=== PATIENT | female | born 1990 | race Caucasian/White ===

== ENCOUNTER 2024-03-22 11:11 | Emergency (ER) | payer OTHER, SELFPAY ==
[2024-03-22 11:22] VITALS: BP 163/99
[2024-03-22 12:02] LABS: ALT (SGPT) 56 U/L (0-35); AST (SGOT) 63 U/L (14-36); Albumin 4.7 g/dl (3.5-5.0); Alkaline Phosphatase 71 U/L (38-126); Blood Urea Nitrogen 12 mg/dl (7-17); Carbon Dioxide 27 mmol/L (22-30); Chloride 103 mmol/L (98-107); Glucose 115 mg/dl (70-99); Potassium 4.2 mmol/L (3.5-5.1); Sodium 137 mmol/L (135-145); Total Bilirubin 0.4 mg/dl (0.2-1.3); Total Protein 7.3 g/dl (6.3-8.2); eGFR > 60.00
[2024-03-22 12:04] LABS: HCG, Serum Qualitative Screen Negative
[2024-03-22 12:08] VITALS: BMI 19.1
[2024-03-22 12:53] LABS: Hematocrit 38.8 % (37.0-47.0); Hemoglobin 13.4 g/dL (12.0-16.0); Mean Corp Hgb Conc. 34.5 g/dL (33.0-37.0); Mean Corpuscular Hgb 29.3 pg (27.0-31.0); Mean Corpuscular Volume 84.7 fL (81.0-99.0); Red Blood Cell Count 4.58 10^6/uL (4.20-5.40); Red Cell Dist. Width 12.2 % (11.5-14.5); White Blood Cell Count 2.8 10^3/uL (4.8-10.8)
--- NOTE | 2024-03-22 13:01 | ED.GENMED ---
History of Present Illness
General
Chief Complaint: Abnormal Lab Value
Source: patient
Exam Limitations: none
Time Seen by Provider: 03/22/24 12:17
Nursing documentation reviewed up to this point in time: agreed with
History of Present Illness
History of Present Illness:
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 The area started to get red 10 days ago and she was put on Bactrim DS BID and on 9th day, yesterday, developed generalized body rash. [facility] to
[facility] and found to have rash Leukopenia and low platelets so sent here for evaluation. Denies f/c/n/v/d/c. Denies cp or sob. Denies swelling of tongue/throat.
Review of Systems
Review of Systems
Allergies reviewed?: Yes
All Other Systems: ROS reviewed and negative except as documented in HPI and ROS
Constitutional: Denies fever, fatigue or chills
EENT: Denies sore throat
Respiratory: Denies no symptoms
Cardiac: Denies chest pain
ABD/GI: Denies abdominal pain, nausea, vomiting or diarrhea
Musculoskeletal: Reports no symptoms
Skin: Reports rash and other (well healing melanoma resection site anterior left thigh)
Neurological: Reports no symptoms
Phy Exam
Physical Exam
Physical Exam:
GENERAL: No acute distress. A&Ox3.
CONSTITUTIONAL: Afebrile.
EYES: PERRL, conjunctivae normal
ENMT: moist mucus membranes, Pharynx nl, no oral lesions
RESPIRATORY: Regular respirations, nonlabored, lungs clear.
CARDIOVASCULAR: Regular rate and rhythm, no murmurs, no rubs.
GI: Soft, nontender, normal BS
MUSCULOSKELETAL: Moves with ease. Well perfused.
SKIN: Warm, dry, pink. Generalized rash light pink (upper back upper legs, abdomen)
PSYCH: Normal mood and affect. Well kept, interactive and appropriate
NEUROLOGIC: Awake, alert and oriented. No focal neurological deficits
Course
Orders/Labs/Results
Orders:
Orders
03/22/24 11:29
Test Result ONCE
03/22/24 11:32
Complete Blood Count/With Diff Urgent
Comprehensive Metabolic Panel Urgent
HCG, Serum Qualitative Screen Urgent
Abnormal Lab Results
03/22/24
11:32
WBC 2.8 L 10^3/uL
(4.8-10.8)
Plt Count 71 L 10^3/uL
(130-400)
MPV 13.0 H fL
(7.4-10.4)
Absolute Neuts (auto) 0.9 L* 10^3/uL
(1.4-6.5)
Neutrophils % 33.9 L %
(42.2-75.2)
Monocytes % 11.6 H %
(1.7-9.3)
Glucose 115 H mg/dl
(70-99)
AST 63 H U/L
(14-36)
ALT 56 H U/L
(0-35)
03/22/24 11:32
03/22/24 11:32
Vital Signs
Initial and Last Documented VS:
Initial Vital Signs
Temp Pulse Resp BP Pulse Ox
98.9 F 106 18 163/99 100
03/22/24 11:22 03/22/24 11:22 03/22/24 11:22 03/22/24 11:22 03/22/24 11:22
Last Documented Vital Signs
Temp Pulse Resp BP Pulse Ox
98.9 F 91 18 118/77 100
03/22/24 11:22 03/22/24 13:33 03/22/24 13:33 03/22/24 13:33 03/22/24 13:33
MDM/Problems Addressed
Differential Diagnosis Includes:
Side effect of Bactrim, drug allergy, DRESS, SJS/TEN
Drug induced thrombocytopenia (DIPT)
MDM/Problems Addressed:
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 The area started to get red 10 days ago and she was put on Bactrim DS BID and on 9th day, yesterday, developed generalized body rash. Went to
today and found to have rash Leukopenia and low platelets so sent here for evaluation. Denies f/c/n/v/d/c. Denies cp or sob. Denies swelling of tongue/throat.
Afebrile, NAD
1:10 PM:
CBC: WBC 2.8 platelet count is pending
CMP: No clinically significant abnormality
hCG negative
Likelihood of DIPT: declining platelet count 9 days after starting Bactrim, sulfonamides known to cause it, Pt has no other risk/cause for thrombocytopenia
Healthy female, no sign of bleeding
history and exam could possibly indicate sulfonamide/drug induced thrombocytopenia/neutropenia
CBC: Platelets 71 (130-400 nl range)
Case discussed with Dr. Reba Burris, informed of hx of melanoma, he agrees most likely drug induced. Recommends have CBC rechecked in a week and if no worse or if improving, again in 3 weeks.
Pt and comfortable with this plan
Reviewed discharge instructions, all questions answered
*Critical Care Note
Total Time (30-74mins, 75-104mins- exclusive of procedures): Not Applicable
ED Attending Note
-
Portions of this chart may have been created with voice recognition software.� Occasional wrong word or��sound alike� substitutions may have occurred due to the inherent limitations of voice recognition software.
Discharge Plan
Departure
Patient Disposition: Home (Routine Discharge)
Date of Disposition: 03/22/24
Time of Disposition: 14:10
Patient with high blood pressure during this ER visit?: No
Condition: Good
Discharge Problem:
Thrombocytopenia due to drugs
Instructions: Managing increased bleeding risk
Referrals:
Surendra Hauser, DO [Family Provider] - Follow up in 5-7 days
Activity Restrictions/Additional Instructions:
As we discussed, your low platelets is most likely from the Bactrim.
Do not take Bactrim again.
Call your PCP tomorrow and get an order for repeat CBC in 1 week, and in 3 weeks to monitor the platelet levels which should be improved
Interventions
Interventions:
*Risk Screen - Suicide Last Done: 03/22/24 11:22
*General Assessment Last Done: 03/22/24 11:22
*Neglect/Abuse Screening Last Done: 03/22/24 11:22
ED- Fall Risk Assessment Last Done: 03/22/24 12:21
*ED COVID-19 Vaccine History Last Done: 03/22/24 12:15
*Nursing Disposition Last Done: 03/22/24 14:24
Discharge Date and Time
Discharge Date/Time: 03/22/24 14:25
Print Language: [place]
[2024-03-22 13:33] VITALS: BP 118/77
[2024-03-22 13:37] LABS: Platelet Count 71 10^3/uL (130-400)
[2024-03-22 13:38] LABS: Nucleated Red Blood Cells % 0 %
[2024-03-22 13:59] LABS: % Basophils 0.7 % (0-2); % Eosinophils 5.1 % (0-6); % Lymphocytes 48.7 % (20.5-51.1); % Monocytes 11.6 % (1.7-9.3); % Neutrophils 33.9 % (42.2-75.2); Absolute Eosinophils 0.1 10^3/uL (0-0.7); Absolute Lymphocytes 1.3 10^3/uL (1.2-3.4); Absolute Monocytes 0.3 10^3/uL (0.1-0.6); Absolute Neutrophils 0.9 10^3/uL (1.4-6.5)
== END 2024-03-22 14:25 | disposition home or self-care (01) ==
LOC: EMR 11:11
PROVIDERS: Emergency Medicine; EMERGENCY PHYSICIAN Emergency Medicine; FAMILY PHYSICIAN Family Medicine
DX: D69.59 Other secondary thrombocytopenia (principal)
CPT/HCPCS: 99283; 80053; 84703; 85025

== ENCOUNTER 2024-06-29 20:17 | Emergency (ER) | payer OTHER, SELFPAY ==
[2024-06-29 20:18] VITALS: BP 140/85
[2024-06-29 20:42] VITALS: BMI 20.3
[2024-06-29 20:56] LABS: % Basophils 0.1 % (0-2); % Immature Granulocytes 0.5 % (0-0.5); % Lymphocytes 10.7 % (20.5-51.1); % Monocytes 1.6 % (1.7-9.3); % Neutrophils 87.1 % (42.2-75.2); Absolute Immature Granulocytes 0.1 10^3/uL (0-0.05); Absolute Lymphocytes 1.2 10^3/uL (1.2-3.4); Absolute Monocytes 0.2 10^3/uL (0.1-0.6); Absolute Neutrophils 9.6 10^3/uL (1.4-6.5); Hematocrit 37.8 % (37.0-47.0); Hemoglobin 12.7 g/dL (12.0-16.0); Mean Corp Hgb Conc. 33.6 g/dL (33.0-37.0); Mean Corpuscular Hgb 29.7 pg (27.0-31.0); Mean Corpuscular Volume 88.5 fL (81.0-99.0); Mean Platelet Volume 10.2 fL (7.4-10.4); Nucleated Red Blood Cells % 0 %; Platelet Count 272 10^3/uL (130-400); Red Blood Cell Count 4.27 10^6/uL (4.20-5.40); Red Cell Dist. Width 12.7 % (11.5-14.5)
[2024-06-29 20:58] LABS: Urine Albumin Negative (Neg - Trace); Urine Bilirubin Negative (Negative); Urine Character Clear (Clear); Urine Color Straw; Urine Glucose Negative (Negative); Urine Ketone Negative (Negative); Urine Leukocyte Negative (Negative); Urine Nitrite Negative (Negative); Urine Occult Blood Negative (Negative); Urine Urobilinogen Negative (Neg - 1+)
[2024-06-29 21:08] LABS: HCG, Serum Qualitative Screen Negative
[2024-06-29 21:12] LABS: ALT (SGPT) 15 U/L (0-35); AST (SGOT) 18 U/L (14-36); Albumin 4.8 g/dl (3.5-5.0); Alkaline Phosphatase 49 U/L (38-126); Blood Urea Nitrogen 14 mg/dl (7-17); Calcium 9.5 mg/dl (8.4-10.2); Carbon Dioxide 24 mmol/L (22-30); Chloride 100 mmol/L (98-107); Estimated Creatinine Clearance 91 ml/min; Glucose 124 mg/dl (70-99); Potassium 4.2 mmol/L (3.5-5.1); Sodium 138 mmol/L (135-145); Total Bilirubin 0.5 mg/dl (0.2-1.3); Total Protein 7.7 g/dl (6.3-8.2); eGFR > 60.00
[2024-06-29 21:14] LABS: Lipase 128 U/L (23-300)
--- NOTE | 2024-06-29 21:15 | ED.GENMED ---
History of Present Illness
General
Chief Complaint: Abdominal Pain
Source: patient
Exam Limitations: none
Time Seen by Provider: 06/29/24 20:37
History of Present Illness
History of Present Illness:
This is a 34 year old female that comes in with c/o upper abd pain. States that this started on Saturday or Saturday last week. States that it is under her ribs and above the naval. States that this gets worse with eating or sitting. States that she
feels bloated and is belching. States that she is taking Prednisone 20mg daily through July. States that occasionally she feels a little lightheaded. Denies any fever, chills, chest pain, SOB, nausea, vomiting, diarrhea, headache, dizziness,
urinary burning.
Past History
Past History
ED Past Medical History: Cancer (Melanoma); Negative Asthma, HTN, Hypercholesterolemia or NIDDM
ED Past Surgical History: None
Social History
Tobacco: Non-smoker
Alcohol: Occasional
Personal:
Living: with family
Review of Systems
Review of Systems
All Other Systems: ROS reviewed and negative except as documented in HPI and ROS
Constitutional: Reports no symptoms; Denies fever or chills
EENT: Reports no symptoms
Respiratory: Reports no symptoms; Denies cough or trouble breathing
Cardiac: Reports no symptoms; Denies chest pain
ABD/GI: Reports abdominal pain; Denies nausea, vomiting, diarrhea or constipated
: Reports no symptoms; Denies dysuria, frequency or urgency
Musculoskeletal: Reports no symptoms
Skin: Reports no symptoms
Neurological: Reports other (Occasionally lightheaded); Denies dizzy or headache
Psychiatric: Reports no symptoms
Phy Exam
General Physical Exam
General Presentation: well appearing and no apparent distress
General age: appears stated age
General Skin: warm and dry
General Habitus: normal
General Mental: alert
General Hydration: appears well hydrated
ENT Exam
ENT Exam: TM's normal, pharynx normal and neck supple
Eye Exam
Eye Exam: EOMI
Cardiovascular Exam
Cardiovascular Exam: regular rate/rhythm, no edema, no murmur and normal peripheral pulses
Pulmonary Exam
Pulmonary Exam: lungs clear, no respiratory distress, no rales, chest non tender, no crackles, no rhonchi, no wheezing and no cough
Gastrointestinal Exam
Gastrointestinal Exam: normal bowel sounds, soft, no organomegaly, no pulsatile mass, non distended and tender (Epigastric area with palpation)
Musculoskeletal Exam
Musculoskeletal Exam: full ROM and no edema
Skin Exam
Skin Exam: normal color, warm/dry, no rash and no petechia
Psychiatric Exam
Psychiatric Exam: normal mood/affect
Course
Orders/Labs/Results
Orders:
Orders
06/29/24 20:41
Test Result ONCE
06/29/24 20:49
Complete Blood Count/With Diff Urgent
Comprehensive Metabolic Panel Urgent
HCG, Serum Qualitative Screen Urgent
Comment: Notify provider if positive test present
Lipase Urgent
Urinalysis Reflex To Culture Urgent
Date Specimen was Collected: 06/29/24
Time Specimen was Collected: 20:43
06/29/24 21:15
Pantoprazole [Protonix IV] 40 mg IV NOW STA
Sucralfate Suspension [Carafate Suspension] 1 gm PO NOW STA
US Abdomen Complete/Upper Urgent
Comment:
Reason For Exam: Upper abd pain. Feels pulsation
Abnormal Lab Results
06/29/24
20:49
WBC 11.0 H 10^3/uL
(4.8-10.8)
Abs Immat Gran (auto) 0.1 H 10^3/uL
(0-0.05)
Absolute Neuts (auto) 9.6 H 10^3/uL
(1.4-6.5)
Neutrophils % 87.1 H %
(42.2-75.2)
Lymphocytes % 10.7 L %
(20.5-51.1)
Monocytes % 1.6 L %
(1.7-9.3)
Glucose 124 H mg/dl
(70-99)
06/29/24 20:49
06/29/24 20:49
WBC slightly elevated. glucose nonfasting (also on Prednisone), Lipase normal at 128, HCG negative. Urine negative for infection.
Vital Signs
Initial and Last Documented VS:
Initial Vital Signs
Temp Pulse Resp BP Pulse Ox
98.0 F 87 18 140/85 99
06/29/24 20:18 06/29/24 20:18 06/29/24 20:18 06/29/24 20:18 06/29/24 20:18
Last Documented Vital Signs
Temp Pulse Resp BP Pulse Ox
98.0 F 73 17 101/65 98
06/29/24 20:18 06/29/24 21:30 06/29/24 21:30 06/29/24 21:30 06/29/24 21:30
MDM/Problems Addressed
Differential Diagnosis Includes:
Gastritis, Ulcers, Gallbladder disease.
MDM/Problems Addressed:
This is a 34 year old female that comes in with c/o upper abd pain. States that she is also taking Prednisone 20mg daily for IVF.
Will check labs, Medicated with Protonix and Carafate and get US.
Back into see patient. States that she feels that the medication did help. Will place patient on Carafate for 10 days and Protonix for 30 days. Will discharge home.
Chronic conditions affecting care:
NA
Acute Exacerbation and/or Progression of Chronic Illness:
NA
*Radiology
Radiology exam reviewed: radiology read reviewed (US-NO sonographic evidence for cholelithiasis, acute cholecystitis or biliary dilation. )
*Pulse Oximetry
Patient hypoxic: no
*EKG
Interpreted by ED Provider?: NA
Rate: EKG- N/A
*Accountant Tax Interpretation
Rate: Accountant Tax- N/A
*Critical Care Note
Total Time (30-74mins, 75-104mins- exclusive of procedures): Not Applicable
ED Attending Note
-
Portions of this chart may have been created with voice recognition software.� Occasional wrong word or��sound alike� substitutions may have occurred due to the inherent limitations of voice recognition software.
Discharge Plan
Departure
Patient Disposition: Home (Routine Discharge)
Date of Disposition: 06/29/24
Time of Disposition: 23:23
Patient with high blood pressure during this ER visit?: No
Condition: Good
Covid-19: Not Applicable
Discharge Problem:
Gastritis
Instructions: Gastritis (DC)
Prescriptions:
New
pantoprazole [Protonix] 40 mg tablet,delayed release (DR/EC)
40 mg PO DAILY Qty: 30 0RF
sucralfate [Carafate] 1 gram tablet
1 g PO ACHS Qty: 40 0RF
Rx Instructions:
Dissolve in 2tsp of water and Drink. 30min-1 hour before meals and HS.
Referrals:
Surendra Hauser DO [Family Provider] - Call in 1-3 days for appt
Activity Restrictions/Additional Instructions:
As discussed, your blood work shows very slight elevation of the white blood cell count. This is most likely due to the steroid that you are taking. Your Ultrasound as normal. This is most likely a Gastritis due to the steroid. You have had 2
prescriptions sent to the Pharmacy. The first is for Carafate which you will take 30 min to 1 hour before each meal and again at Bedtime. The second is for Protonix which is once daily. Follow up with the family doctor for further evaluation. IF YOU
HAVE INCREASED OR CHANGING PAIN, OR YOU HAVE ANY OTHER CONCERNS PLEASE RETURN TO THE EMERGENCY ROOM.
Interventions
Interventions:
*Risk Screen - Suicide Last Done: 06/29/24 20:18
*General Assessment Last Done: 06/29/24 20:18
*Neglect/Abuse Screening Last Done: 06/29/24 20:18
ED- Fall Risk Assessment Last Done: 06/29/24 20:18
*ED COVID-19 Vaccine History Last Done: 06/29/24 20:18
[id number] Assessment Last Done: 06/29/24 20:49
Discharge Date and Time
Print Language: AMERICAN
[2024-06-29 21:30] VITALS: BP 101/65
[2024-06-29] MEDS: CARAFATE SUSPENSION 1 GM PO (21:32)
[2024-06-29] MEDS: PROTONIX IV 40 MG IV (21:32)
[2024-06-29 23:22] VITALS: BP 109/71
== END 2024-06-29 23:33 | disposition home or self-care (01) ==
LOC: EMR 20:17
PROVIDERS: Emergency Medicine; EMERGENCY PHYSICIAN Emergency Medicine; FAMILY PHYSICIAN Family Medicine
DX: K29.70 Gastritis, unspecified, without bleeding (principal); Z85.820 Personal history of malignant melanoma of skin
CPT/HCPCS: 99284; 76700; 80053; 81003; 83690; 84703; 85025

== ENCOUNTER → 2024-09-01 10:46 | Outpatient (REF) | payer OTHER, SELFPAY | LOC: RAD 10:46 | PROVIDERS: ATTENDING PHYSICIAN Nurse Practitioner Family; FAMILY PHYSICIAN Family Medicine | DX: O26.859 Spotting complicating pregnancy, unspecified trimester (principal) | CPT/HCPCS: 76801 ==

== ENCOUNTER → 2025-03-10 09:45 | Outpatient (REF) | payer OTHER, SELFPAY | LOC: PNTC 09:45 | PROVIDERS: ATTENDING PHYSICIAN Student in an Organized Health Care Education/Training Program | DX: Z31.83 Encounter for assisted reproductive fertility procedure cycle (principal) | CPT/HCPCS: 36415; 59025 ==

== ENCOUNTER 2025-03-25 19:24 | Inpatient (IN) | payer OTHER, SELFPAY ==
[2025-03-25 19:28] VITALS: BMI 26.0
[2025-03-25 20:05] VITALS: BP 126/84
[2025-03-25] MEDS: CYTOTEC 25 MICROGRAM VAG (20:54)
[2025-03-25 21:11] LABS: Hematocrit 37.7 % (37.0-47.0); Hemoglobin 12.9 g/dL (12.0-16.0); Mean Corp Hgb Conc. 34.2 g/dL (33.0-37.0); Mean Corpuscular Volume 87.9 fL (81.0-99.0); Nucleated Red Blood Cells % 0 %; Platelet Count 161 10^3/uL (130-400); Red Cell Dist. Width 13.2 % (11.5-14.5)
[2025-03-26] MEDS: CYTOTEC 50 MICROGRAM PO ×2 (01:00→05:29)
[2025-03-26] MEDS: LR 1000 IV ×3 (06:18→19:15)
[2025-03-26] MEDS: CYTOTEC PO ×4 (10:57→23:38)
[2025-03-26] MEDS: PITOCIN 30 UNITS/NSS 500 ML IV (11:18)
[2025-03-26] MEDS: STADOL 1 MG IV (18:01)
[2025-03-26] MEDS: FENTANYL/BUPIVACAINE 100 EPIDURAL (23:54)
[2025-03-26] MEDS: SUBLIMAZE 100 MCG EPIDURAL (23:54)
[2025-03-27] MEDS: LR 1000 IV ×3 (00:15→11:14)
[2025-03-27] MEDS: TUMS CHEWABLE TABLET 400 MG PO (01:25)
[2025-03-27] MEDS: PHENERGAN 50.5 MG IV (02:36)
[2025-03-27] MEDS: FENTANYL/BUPIVACAINE 100 EPIDURAL (08:37)
[2025-03-27] MEDS: ZOFRAN 4 MG IV (11:12)
[2025-03-27] MEDS: TYLENOL 975 MG PO (11:25)
[2025-03-27] MEDS: BICITRA 30 ML PO (11:25)
[2025-03-27] MEDS: ANCEF 10 IV (11:26)
[2025-03-27] MEDS: ZITHROMAX INFUSION 250 IV (11:27)
[2025-03-27] MEDS: TORADOL 15 MG IV ×2 (13:55→19:41)
[2025-03-27] MEDS: PITOCIN 30 UNITS/NSS 500 ML IV (13:56)
[2025-03-27] MEDS: ROXICODONE 5 MG PO ×2 (16:27→21:17)
[2025-03-27] MEDS: COLACE 100 MG PO (19:42)
[2025-03-27] MEDS: TYLENOL 650 MG PO (21:17)
[2025-03-28] MEDS: TORADOL 15 MG IV ×2 (01:50→08:32)
[2025-03-28] MEDS: TYLENOL 650 MG PO ×3 (01:50→20:25)
[2025-03-28 05:06] LABS: Hematocrit 29.6 % (37.0-47.0); Hemoglobin 10.2 g/dL (12.0-16.0); Mean Corp Hgb Conc. 34.5 g/dL (33.0-37.0); Mean Corpuscular Volume 87.6 fL (81.0-99.0); Platelet Count 124 10^3/uL (130-400); Red Cell Dist. Width 13.3 % (11.5-14.5)
[2025-03-28] MEDS: ROXICODONE 10 MG PO (05:17)
[2025-03-28] MEDS: PRENATAL PLUS 1 TABLET PO (08:31)
[2025-03-28] MEDS: COLACE 100 MG PO ×2 (08:31→20:25)
[2025-03-28] MEDS: FEOSOL 325 MG PO (08:31)
[2025-03-28] MEDS: MOTRIN 600 MG PO ×2 (14:27→20:25)
[2025-03-28] MEDS: ROXICODONE 5 MG PO (15:33)
[2025-03-28] MEDS: ZOFRAN ODT (ORALLY DISINTEGRATING) 4 MG PO (16:25)
[2025-03-28] MEDS: MYLICON 80 MG PO (16:39)
[2025-03-29] MEDS: TYLENOL 650 MG PO ×2 (02:37→22:14)
[2025-03-29] MEDS: MOTRIN 600 MG PO (02:37)
[2025-03-29] MEDS: ZOFRAN ODT (ORALLY DISINTEGRATING) 4 MG PO ×2 (05:55→15:10)
--- NOTE | 2025-03-29 07:12 | W.PN.ANS.POP ---
Anesthesia Post Operative
- Anesthesia Post Op Note
Vital Signs Stable-See Nursing Note: Yes
Airway Patent: Yes
Adequate Pain Control: Yes
Change in Mental Status: No
Current Postoperative Nausea & Vomiting: No
Anesthesia Complications: No
General Anesthetic Recall: No
Unplanned Admission: No
Post Op Hydration Adequate: Yes
[2025-03-29] MEDS: COLACE 100 MG PO (08:16)
[2025-03-29] MEDS: PRENATAL PLUS 1 TABLET PO (08:16)
[2025-03-29] MEDS: FEOSOL PO ×2 (08:16→15:39)
[2025-03-29] MEDS: MYLICON 80 MG PO ×3 (10:39→22:14)
[2025-03-29] MEDS: TYLENOL PO (10:39)
[2025-03-29] MEDS: PEPCID 20 MG PO ×2 (11:19→22:14)
[2025-03-29] MEDS: LR 1000 IV (16:08)
[2025-03-29] MEDS: PEPCID 20 MG IV (16:16)
[2025-03-29] MEDS: REGLAN 10 MG IV (16:17)
[2025-03-29] MEDS: NSS (PRESERVATIVE FREE) 8 ML IV (16:17)
[2025-03-29 16:25] LABS: ALT (SGPT) 11 U/L (0-35); AST (SGOT) 22 U/L (14-36); Albumin 2.9 g/dl (3.5-5.0); Alkaline Phosphatase 120 U/L (38-126); Blood Urea Nitrogen 11 mg/dl (7-17); Calcium 9.0 mg/dl (8.4-10.2); Carbon Dioxide 27 mmol/L (22-30); Chloride 105 mmol/L (98-107); Estimated Creatinine Clearance 90 ml/min; Glucose 83 mg/dl (70-99); Potassium 3.9 mmol/L (3.5-5.1); Sodium 133 mmol/L (135-145); Total Protein 5.4 g/dl (6.3-8.2); eGFR > 60.00
[2025-03-29 16:39] LABS: Hematocrit 34.7 % (37.0-47.0); Hemoglobin 11.9 g/dL (12.0-16.0); Mean Corp Hgb Conc. 34.3 g/dL (33.0-37.0); Mean Corpuscular Volume 88.1 fL (81.0-99.0); Platelet Count 188 10^3/uL (130-400); Red Cell Dist. Width 13.3 % (11.5-14.5)
[2025-03-29] MEDS: COLACE PO (20:15)
[2025-03-30] MEDS: TYLENOL 650 MG PO (05:25)
[2025-03-30] MEDS: MYLICON 80 MG PO (05:25)
[2025-03-30] MEDS: PRENATAL PLUS PO (08:54)
[2025-03-30] MEDS: COLACE PO (08:54)
[2025-03-30] MEDS: PEPCID 20 MG PO (09:02)
[2025-03-30] MEDS: FEOSOL 325 MG PO (09:02)
--- NOTE | 2025-03-30 10:25 | W.DS.TRANS ---
DC Summary - Sample Finisher
-
Discharge Instructions:
Instructions:
Stand-Alone Forms:
Changes to Home Medications: No
Discharge Medications:
DC Medications w/original date entered in [facility]
1 tab PO DAILY 03/25/25
Home Medication Changes
Pending Results: Yes (Pathology from placenta)
Total time spent discharging patient (in min): 20
[2025-03-30 11:06] LABS: Syphilis/T. pallidum Ab Reflex Negative (Negative)
== END 2025-03-30 11:13 | disposition home or self-care (01) | DRG 788 ==
LOC: LDRP 19:24
PROVIDERS: Obstetrics & Gynecology; Student in an Organized Health Care Education/Training Program; ADMITTING PHYSICIAN Obstetrics & Gynecology; FAMILY PHYSICIAN Family Medicine
PROC: 3E0P7VZ Introduction of Hormone into Female Reproductive, Via Natural or Artificial Opening (ICD-10-PCS; 2025-03-25)
PROC: 0U7C7DJ Dilation of Cervix with Intraluminal Device, Temporary, Via Natural or Artificial Opening (ICD-10-PCS; 2025-03-26)
PROC: 3E033VJ Introduction of Other Hormone into Peripheral Vein, Percutaneous Approach (ICD-10-PCS; 2025-03-26)
PROC: 10907ZC Drainage of Amniotic Fluid, Therapeutic from Products of Conception, Via Natural or Artificial Opening (ICD-10-PCS; 2025-03-26)
PROC: 10D00Z1 Extraction of Products of Conception, Low, Open Approach (ICD-10-PCS; 2025-03-27)
DX: O76 Abnormality in fetal heart rate and rhythm complicating labor and delivery (principal); O62.2 Other uterine inertia; Z3A.39 39 weeks gestation of pregnancy; Z37.0 Single live birth; N97.9 Female infertility, unspecified; O77.0 Labor and delivery complicated by meconium in amniotic fluid; O90.81 Anemia of the puerperium; D64.9 Anemia, unspecified; R11.2 Nausea with vomiting, unspecified; Z88.2 Allergy status to sulfonamides; Z88.1 Allergy status to other antibiotic agents; Z86.006 Personal history of melanoma in-situ
CPT/HCPCS: 36415; 80053; 85025; 85027; 86780; 86850; 86900; 86901; 88307